=== PATIENT | female | born 1985 | race Caucasian/White ===

== ENCOUNTER 2022-05-31 14:42 | Emergency (ER) | payer MEDICAID ==
[~2022-05-31] VITALS: Ht 162.6 cm; Wt 65.8 kg
[2022-05-31 15:35] VITALS: BP 130/75
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
--- NOTE | 2022-05-31 17:17 | NUR ---
Patient discharged to home in stable condition. Written and verbal after care instructions given. Patient verbalizes understanding of instruction.
--- NOTE | 2022-05-31 17:17 | NUR ---
PT PROVIDED W/ IMAGE STUDY VIA CD.
== END 2022-05-31 17:18 | disposition home or self-care (01) ==
LOC: ER 15:02
DX: S89.82XA Other specified injuries of left lower leg, initial encounter (principal); M25.462 Effusion, left knee; Z60.2 Problems related to living alone; X50.1XXA Overexertion from prolonged static or awkward postures, initial encounter; Y93.89 Activity, other specified; Y92.89 Other specified places as the place of occurrence of the external cause; Y99.8 Other external cause status
CPT/HCPCS: 73564-TC